=== PATIENT | female | born 1990 | race Caucasian/White ===

== ENCOUNTER 2017-02-07 12:07 | Observation (INO) | payer MEDICAID, OTHER ==
[~2017-02-07] VITALS: Ht 160 cm; Wt 62.6 kg
[2017-02-07 12:53] LABS: BASOPHILS % 0.5 % (0.0-2.0); EOSINOPHILS % 0.5 % (0.0-5.0); HEMATOCRIT. 22.3 % (36.0-48.0); LYMPHOCYTES % 15.2 % (20.0-50.0); MEAN CORPUSCULAR HEMOGLOBIN 19.2 pg (28.0-32.0); MEAN CORPUSCULAR HGB CONC 30.5 g/dL (31.0-37.0); MEAN PLATELET VOLUME 8.5 fl (7.4-10.4); NEUTROPHILS % 78.8 % (40.0-76.0); PLATELET 192 x1000/uL (130-400); RED BLOOD CELL COUNT 3.53 mill/uL (4.2-5.4); WHITE BLOOD COUNT 10.2 x1000/uL (4.5-11.0)
[2017-02-07 12:55] LABS: ADD RBC MORPHOLOGY YES; DIFFERENTIAL COMMENT 1; HEMOGLOBIN. 6.8 g/dL (12.0-16.0)
[2017-02-07 12:58] LABS: CHLORIDE 102 mEq/L (98-107); INDEX HEMOLYSI 1 (1-3); INDEX ICTERIC 1 (1-4); INDEX LIPEMIC 1 (1-3)
[2017-02-07 13:05] LABS: ANION GAP 12; CALCIUM 8.1 mg/dL (8.5-10.1); CARBON DIOXIDE 27 mEq/L (21-32); UREA NITROGEN BLOOD 9 mg/dL (7-21); eGFR > 60 mL/min (>60)
[2017-02-07] MEDS ORDERED: SODIUM CHLORIDE 0.9% 1,000 ML IV ONE (13:15)
[2017-02-07 13:18] LABS: HYPOCHROMASIA 2+; PLATELET ESTIMATE NORMAL
[2017-02-07 13:19] LABS: GIANT PLATELETS FEW
[2017-02-07 13:20] LABS: ANISOCYTOSIS 2+
[2017-02-07] MEDS ORDERED: ACETAMINOPHEN 650MG/20.3ML UDC PO PRN (19:45)
[2017-02-07 20:20] LABS: INDEX HEMOLYSI 1 (1-3); INDEX ICTERIC 1 (1-4); INDEX LIPEMIC 1 (1-3); IRON 17 ug/dL (50-175); TOTAL IRON BINDING CAPACITY 438 ug/dL (250-450)
[2017-02-07] MEDS ORDERED: FERR1TAB51 PO (20:35)
[2017-02-07] MEDS ORDERED: PREN-88 PO (20:35)
[2017-02-07 20:37] LABS: INDEX HEMOLYSI 1 (1-3)
[2017-02-07 20:42] LABS: FERRITIN < 5 ng/mL (10-291)
[2017-02-07 20:51] LABS: VITAMIN B12 SERUM 413 pg/mL (211-911)
[2017-02-08 00:53] LABS: CLARITY URINE CLEAR (CLEAR); COLOR URINE YELLOW (YELLOW); GLUCOSE URINE NEGATIVE (NEGATIVE); KETONES URINE NEGATIVE (NEGATIVE); LEUKOCYTE ESTERASE URINE 3+ (NEGATIVE); NITRITE URINE NEGATIVE (NEGATIVE); OCCULT BLOOD URINE NEGATIVE (NEGATIVE); PH URINE 7.5 (4.5-8.0); PROTEIN URINE NEGATIVE (NEGATIVE); SPECIFIC GRAVITY URINE 1.011 (1.005-1.030)
[2017-02-08 01:28] LABS: SQUAMOUS EPITHELIAL CELL URINE 1+ /lpf (RARE/1+)
[2017-02-08 01:30] LABS: BACTERIA URINE 1+; RBC URINE 0-2 /hpf (0-2)
[2017-02-08 02:16] LABS: BASOPHILS % 0.7 % (0.0-2.0); HEMATOCRIT. 27.1 % (36.0-48.0); HEMOGLOBIN. 8.5 g/dL (12.0-16.0); LYMPHOCYTES % 24.1 % (20.0-50.0); MEAN CORPUSCULAR HEMOGLOBIN 21.4 pg (28.0-32.0); MEAN CORPUSCULAR HGB CONC 31.3 g/dL (31.0-37.0); MEAN CORPUSCULAR VOLUME 68.3 fL (81.0-99.0); MEAN PLATELET VOLUME 8.3 fl (7.4-10.4); MONOCYTES % 6.3 % (2.0-8.0); NEUTROPHILS % 67.9 % (40.0-76.0); PLATELET 190 x1000/uL (130-400); RED BLOOD CELL COUNT 3.96 mill/uL (4.2-5.4); WHITE BLOOD COUNT 10.2 x1000/uL (4.5-11.0)
[2017-02-08 02:19] LABS: DIFFERENTIAL COMMENT 1
[2017-02-08 07:21] LABS: BASOPHILS % 0.6 % (0.0-2.0); HEMATOCRIT. 27.2 % (36.0-48.0); HEMOGLOBIN. 8.5 g/dL (12.0-16.0); LYMPHOCYTES % 23.3 % (20.0-50.0); MEAN CORPUSCULAR HEMOGLOBIN 21.3 pg (28.0-32.0); MEAN CORPUSCULAR HGB CONC 31.2 g/dL (31.0-37.0); MEAN CORPUSCULAR VOLUME 68.4 fL (81.0-99.0); MEAN PLATELET VOLUME 8.8 fl (7.4-10.4); NEUTROPHILS % 68.1 % (40.0-76.0); PLATELET 182 x1000/uL (130-400); RED BLOOD CELL COUNT 3.97 mill/uL (4.2-5.4); RED CELL DISTRIBUTION WIDTH 26.1 % (11.6-14.6); WHITE BLOOD COUNT 9.5 x1000/uL (4.5-11.0)
[2017-02-08 07:25] LABS: DIFFERENTIAL COMMENT 1
[2017-02-08] MEDS: FERROUS SULFATE 325MG TABLET PO SCH ×3 (08:19→17:23)
[2017-02-08] MEDS: DOCUSATE SODIUM 100MG CAPSULE PO SCH ×2 (08:19→17:00)
[2017-02-08] MEDS ORDERED: IRON SUCROSE COMPLEX 100 MG/5 ML ML IV SCH (09:00)
[2017-02-08] MEDS ORDERED: PRENATAL VIT/FE FUMARATE/FA TABLET PO SCH (09:00)
[2017-02-08 12:14] LABS: FOLIC ACID (FOLATE) SERUM 18.3 ng/mL (>5.38)
[2017-02-08 16:23] VITALS: BP 108/65
[2017-02-12 09:06] LABS: HGB A 98.4 % (94.0-98.0); HGB A2 1.6 % (0.7-3.1); HGB SOLUBILITY Negative (Negative)
== END 2017-02-08 17:45 | disposition home or self-care (01) ==
LOC: ER 12:24 → 7WST 13:41 → INTOOBSV 13:41
PROVIDERS: ADMIT Internal Medicine Pulmonary Disease; ATTEND Internal Medicine Pulmonary Disease
DX: O99.012 Anemia complicating pregnancy, second trimester (principal); O26.892 Other specified pregnancy related conditions, second trimester; R55 Syncope and collapse; Z3A.26 26 weeks gestation of pregnancy; O99.512 Diseases of the respiratory system complicating pregnancy, second trimester; R06.02 Shortness of breath; R42 Dizziness and giddiness; R53.83 Other fatigue; R07.89 Other chest pain
CPT/HCPCS: 36415; 36430; 76805; 80048; 81001; 82270; 82607; 82728; 82746; 83021; 83540; 83550; 85025; 85610; 85660; 86850; 86900; 86901; 86920; 96361; 96374; 99285; G0378; J7030; J7040; P9016; 96360

== ENCOUNTER 2017-03-17 23:37 | Observation (INO) | payer MEDICAID ==
[~2017-03-17] VITALS: Ht 160 cm; Wt 66.2 kg
[~2017-03-17 23:37] MED LIST: FERR1TAB51 PO; PREN-88 PO
[2017-03-18] MEDS ORDERED: PREN-88 PO (00:51)
[2017-03-18] MEDS ORDERED: TERBUTALINE SULFATE 1MG/ML VIAL SUBCUT PRN (01:00)
[2017-03-18] MEDS ORDERED: LACTATED RINGERS 1,000 ML IV SCH (01:00)
[2017-03-18 01:58] LABS: BASOPHILS % 0.5 % (0.0-2.0); HEMATOCRIT. 27.7 % (36.0-48.0); HEMOGLOBIN. 8.8 g/dL (12.0-16.0); LYMPHOCYTES % 15.7 % (20.0-50.0); MEAN CORPUSCULAR HEMOGLOBIN 23.7 pg (28.0-32.0); MEAN CORPUSCULAR VOLUME 74.6 fL (81.0-99.0); MEAN PLATELET VOLUME 8.8 fl (7.4-10.4); MONOCYTES % 7.2 % (2.0-8.0); NEUTROPHILS % 75.6 % (40.0-76.0); PLATELET 177 x1000/uL (130-400); RED BLOOD CELL COUNT 3.71 mill/uL (4.2-5.4); RED CELL DISTRIBUTION WIDTH 30.6 % (11.6-14.6)
[2017-03-18 02:05] LABS: CHLORIDE 107 mEq/L (98-107)
[2017-03-18 02:06] LABS: CLARITY URINE CLEAR (CLEAR); COLOR URINE YELLOW (YELLOW); GLUCOSE URINE NEGATIVE (NEGATIVE); KETONES URINE NEGATIVE (NEGATIVE); LEUKOCYTE ESTERASE URINE NEGATIVE (NEGATIVE); NITRITE URINE NEGATIVE (NEGATIVE); OCCULT BLOOD URINE 2+ (NEGATIVE); PH URINE 8.5 (4.5-8.0); PROTEIN URINE NEGATIVE (NEGATIVE); SPECIFIC GRAVITY URINE 1.011 (1.005-1.030)
[2017-03-18 02:13] LABS: CARBON DIOXIDE 27 mEq/L (21-32)
[2017-03-18 02:24] LABS: INR 0.9; PARTIAL THROMBOPLASTIN TIME 23.6 sec (24.0-34.0); PROTHROMBIN TIME 9.8 sec
== END 2017-03-18 03:05 | disposition home or self-care (01) ==
LOC: L&D 23:37
PROVIDERS: ADMIT Specialist; ATTEND Specialist
DX: O26.899 Other specified pregnancy related conditions, unspecified trimester (principal); R10.9 Unspecified abdominal pain; Z3A.00 Weeks of gestation of pregnancy not specified
CPT/HCPCS: 36415; 80053; 81001; 84550; 85025; 85384; 85610; 85730; 96360; 96361; 96372; 99281; G0378; J3105; J7120; 59412

== ENCOUNTER 2017-06-13 00:29 | Emergency (ER) | payer MEDICAID, OTHER ==
[~2017-06-13] VITALS: Ht 160 cm; Wt 60.0 kg
[2017-06-13 05:53] VITALS: BP 122/75
[2017-06-13] MEDS ORDERED: LIDOCAINE HCL 1% 20ML VIAL (Pyxis) INJ MC ONE (06:30)
== END 2017-06-13 08:38 | disposition home or self-care (01) ==
LOC: ER 00:29
DX: L02.31 Cutaneous abscess of buttock (principal); Z88.0 Allergy status to penicillin
CPT/HCPCS: 10060; 99283; A4217; J3490; Z7610